=== PATIENT | female | born 1980 | race Caucasian/White ===

== ENCOUNTER → 2016-05-28 | Outpatient (CLI) | payer BC ==
--- NOTE | 2016-05-28 14:40 | US ---
EXAMINATION TYPE: US pelvic complete DATE OF EXAM: 05/28/2016 2:19 PM COMPARISON: CT on PACS CLINICAL HISTORY: Pelvic Pain R10.2. TECHNIQUE: Transvaginal (TV) and Transabdominal (TA) Date of LMP: 3 1/2 years ago post ablasion EXAM MEASUREMENTS: Uterus: 9.2 x 4.8x 4.7 cm cm Endometrial Stripe: 0.4 cm cm Right Ovary: 2.7 x 1.9 x 1.9 cm cm Left Ovary: 3.1 x 1.9 x 1.8 cm cm Findings: 1. Uterus: Retroverted. Heterogeneous texture overall. Hypoechoic nodule in the right side of the ut erine myometrium measures =2.0 x x 1.1 cm. Additional hypoechoic nodule with mass effect on endometr ium = 2.4 x 2.3 x 1.7 cm. Multiple cervical cysts noted. Largest = 0.7 cm 2. Endometrium: wnl 3. Right Ovary: wnl, with follicles. 4. Left Ovary: wnl, with follicles 5. Bilateral Adnexa: wnl 6. Posterior cul-de-sac: tiny amount of free fluid noted. IMPRESSION: 1. Multiple uterine masses with a diffusely heterogeneous echo pattern to the uterus. Most likely on the basis of fibroid uterus. Confirmation with MRI could be obtained on a short-term basis.
== END ==
LOC: RADUSWWP 13:52
PROVIDERS: ATTEND Family Medicine
DX: N85.8 Other specified noninflammatory disorders of uterus (principal)
CPT/HCPCS: 76830; 76856

== ENCOUNTER → 2016-08-28 | Outpatient (CLI) | payer BC ==
[2016-08-28 16:23] LABS: Basophils % (A) 0 %; CH 29.8; CHCM 32.1; Eosinophils # (A) 0.2 k/uL (0-0.7); Eosinophils % (A) 1 %; HCT 39.1 % (34.0-46.0); HDW 2.18; HGB 12.6 gm/dL (11.4-16.0); Luc # (Auto) 0.19; Luc % (Auto) 1; Lymphocytes # (A) 2.4 k/uL (1.0-4.8); Lymphocytes % (A) 13 %; MCHC 32.2 g/dL (31.0-37.0); MCV 93.2 fL (80.0-100.0); Mean Platelet Volume 6.4; Monocytes # (A) 0.6 k/uL (0-1.0); Monocytes % (A) 3 %; Neutrophils # (A) 15.8 k/uL (1.3-7.7); Neutrophils % (A) 82 %; RDW 12.9 % (11.5-15.5); WBC 19.2 k/uL (3.8-10.6); WBC (Perox) 19.61
[2016-08-28 16:31] LABS: Anion Gap 9 mmol/L; Blood Urea Nitrogen 9 mg/dL (7-17); Carbon Dioxide 27 mmol/L (22-30); Chloride 101 mmol/L (98-107); Glucose 101 mg/dL (74-99); Non-African American GFR(MDRD) >60 (>60 ml/min/1.73 sqM); Potassium 4.1 mmol/L (3.5-5.1); Sodium 137 mmol/L (137-145)
== END ==
LOC: LABPAT 15:56
PROVIDERS: ATTEND Obstetrics & Gynecology
DX: Z01.812 Encounter for preprocedural laboratory examination (principal); N94.6 Dysmenorrhea, unspecified; D25.9 Leiomyoma of uterus, unspecified
CPT/HCPCS: 80051; 82565; 82947; 84520; 85025; 86850; 86900; 86901; 87086

== ENCOUNTER → 2016-08-30 | Outpatient (CLI) | payer BC ==
[2016-08-30 15:34] LABS: Basophils # (A) 0.1 k/uL (0-0.2); Basophils % (A) 0 %; CH 29.9; CHCM 32.1; Eosinophils # (A) 0.2 k/uL (0-0.7); Eosinophils % (A) 2 %; HCT 39.3 % (34.0-46.0); HDW 2.18; HGB 12.3 gm/dL (11.4-16.0); Luc # (Auto) 0.17; Luc % (Auto) 2; Lymphocytes # (A) 2.3 k/uL (1.0-4.8); Lymphocytes % (A) 20 %; MCH 29.4 pg (25.0-35.0); MCHC 31.4 g/dL (31.0-37.0); MCV 93.5 fL (80.0-100.0); Mean Platelet Volume 6.5; Monocytes # (A) 0.4 k/uL (0-1.0); Monocytes % (A) 4 %; Neutrophils # (A) 8.5 k/uL (1.3-7.7); Neutrophils % (A) 73 %; RDW 12.8 % (11.5-15.5); WBC 11.7 k/uL (3.8-10.6); WBC (Perox) 12.35
[2016-08-30 16:22] LABS: Large Platelets Present; Manual Review Performed
== END | disposition home or self-care (01) ==
LOC: LABWHC1 14:56
PROVIDERS: ATTEND Family Medicine
DX: D70.9 Neutropenia, unspecified (principal)
CPT/HCPCS: 36415; 85025

== ENCOUNTER → 2016-10-09 | Outpatient (CLI) | payer BC ==
[2016-10-09 07:30] LABS: Basophils # (A) 0.1 k/uL (0-0.2); Basophils % (A) 1 %; CH 29.6; CHCM 33.5; Eosinophils # (A) 0.4 k/uL (0-0.7); Eosinophils % (A) 4 %; HCT 40.9 % (34.0-46.0); HDW 2.31; HGB 13.6 gm/dL (11.4-16.0); Luc # (Auto) 0.17; Luc % (Auto) 2; Lymphocytes # (A) 2.5 k/uL (1.0-4.8); Lymphocytes % (A) 26 %; MCH 29.5 pg (25.0-35.0); MCHC 33.2 g/dL (31.0-37.0); MCV 88.7 fL (80.0-100.0); Mean Platelet Volume 6.6; Monocytes # (A) 0.5 k/uL (0-1.0); Monocytes % (A) 5 %; Neutrophils # (A) 6.1 k/uL (1.3-7.7); Neutrophils % (A) 63 %; RBC 4.61 m/uL (3.80-5.40); RDW 13.1 % (11.5-15.5); WBC 9.7 k/uL (3.8-10.6); WBC (Perox) 9.05
[2016-10-09 07:47] LABS: Anion Gap 9 mmol/L; Blood Urea Nitrogen 11 mg/dL (7-17); Carbon Dioxide 26 mmol/L (22-30); Chloride 106 mmol/L (98-107); Glucose 101 mg/dL (74-99); Non-African American GFR(MDRD) >60 (>60 ml/min/1.73 sqM); Potassium 4.7 mmol/L (3.5-5.1); Sodium 141 mmol/L (137-145)
== END | disposition home or self-care (01) ==
LOC: LABPAT 06:36
PROVIDERS: ATTEND Obstetrics & Gynecology
DX: Z01.812 Encounter for preprocedural laboratory examination (principal); O90.81 Anemia of the puerperium; R53.83 Other fatigue; N94.6 Dysmenorrhea, unspecified; D21.9 Benign neoplasm of connective and other soft tissue, unspecified; R10.2 Pelvic and perineal pain
CPT/HCPCS: 80051; 82565; 82947; 84439; 84443; 84520; 85025; 86850; 86900; 86901; 87086

== ENCOUNTER 2016-10-16 08:35 | Observation (INO) | payer BC ==
[2016-10-12 18:06] VITALS: BMI 30.7
--- NOTE | 2016-10-15 20:54 | HP ---
HISTORY OF PRESENT ILLNESS: The patient is a 36 year old, 4, para 4, 0 , 0, 4 who was initially referred by Dr. Cullen for evaluation of pelvic pain. Her specific complaints four to six months of significant pelvic pain associated with cycles. She has undergone endometrial ablation approximately four years ago but the pain has become significant enough to prompt visits to the emergency room on at least one occasion. Ultrasound demonstrated possible thyroid as well as suggestion of ruptured ovarian cysts. She has a tubal ligation in place and is not interested in further child bearing. She would like to avoid hormonal interventions if possible and is opting to proceed with definitive therapy, specifically hysterectomy. PAST MEDICAL HISTORY: Significant for gestational diabetes as well as induced hypertension. SURGICAL HISTORY: She had her tonsils and adenoids out in 1994. She has had back injections for chronic back pain. She additionally had parotid gland surgery in early 1999 and tubes in her ears as a child. She denies anesthetic concerns. OBSTETRICAL HISTORY: 4, para 4, 0, 0, 4 with four term vaginal deliveries complicated by two episodes of preeclampsia, one vacuum delivery and her final with gestational diabetes. Method of contraception is tubal ligation. Gynecological history is unremarkable with a remote history of STDs but nothing recent. Family history is noncontributory. Social history: The patient is and is a nonsmoker. 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 She denies any other alcohol, drugs or any other social concerns. Current medications: 1. Lamictal 25 mg one in the a.m. and two in the p.m. 2. Seroquel 100 mg daily. 3. Venlafaxine 150 mg oral capsule daily. ALLERGIES: VICODIN CAUSED NAUSEA AND VOMITING WELL DISTURBED LEVEL OF CONSCIOUSNESS. PHYSICAL EXAMINATION: Vital signs are stable and the patient is afebrile. In general, this is a well developed white female in no acute distress. HEENT: demonstrates PERRLA, EOMI, her oropharynx is clear. Neck is supple without adenopathy. Thyroid is normal to palpation. Her heart has regular rhythm and rate without murmur. Her lungs are clear to auscultation bilaterally in all ricardo. Her abdomen is nondistended and has normal active bowel sounds, is soft , nontender, without any palpable masses. Hepatosplenomegaly without any hernias. Her extremities without cyanosis, clubbing or edema and are nontender to palpation bilaterally. Bimanual pelvic examination demonstrates normal external genitalia and BUF with normal vaginal mucosa and cervix. There is no cervical motion tenderness. Uterus was approximately five to six weeks in size, mobile, mobile, nontender, normal shaped uterus with ( ) to approximately +2 to +3 station. The adnexa are normal and nontender without mass bilaterally. ASSESSMENT AND PLAN: 1. Dysmenorrhea. 2. Fibroid uterus. 3. Chronic pelvic pain. We discussed multiple options for ongoing treatment including pain control. Hormonal manipulation in either a short or snf fashion as well as surgical approaches. The patient has requested definitive therapy with hysterectomy as she has her tubes tied and has undergone ablation. She is a candidate for a vaginal approach to the surgery. As a result, the risks and complications of the vaginal hysterectomy were discussed at length to include risks of bleeding, bleeding requiring transfusion, infection, and injury to local structures to specifically include the bowel, bladder and ureters. She has voice an understanding of all of these concerns and agrees to proceed. We went on to discuss the typical hospital and postoperative courses. We are scheduled for the above procedure on the morning of October 16, 2016. [facility] CENTERMallory
[~2016-10-16 08:35] MED LIST: DEXAMETHASONE SOD PHOSPHATE 10 MG/ML 1 ML VIAL IV ONE; LACTATED RINGERS 1,000 ML IV SCH; MIDAZOLAM 2 MG/2 ML VIAL IV PRN; ONDANSETRON 4 MG/2 ML VIAL IVP ONE; ceFAZolin 2 GM in SODIUM CHLORIDE 0.9% 100 ML IVPB ONE
[2016-10-16] MEDS ORDERED: LIDOCAINE 1% 20 ML VIAL (10MG/ML) FOR IV START INTRADERMA ONE (09:00)
[2016-10-16] MEDS ORDERED: SUCCINYLCHOLINE CHLORIDE 100 MG/5 ML SYR IV ONE (09:34)
[2016-10-16] MEDS ORDERED: fentaNYL (PF) 50 MCG/ML 2 ML AMP ONE (09:34)
[2016-10-16] MEDS ORDERED: KETOROLAC 30 MG/ML 1 ML VIAL ONE (09:34)
[2016-10-16] MEDS ORDERED: PROPOFOL 10 MG/ML 20 ML VIAL IV ONE (09:34)
[2016-10-16] MEDS ORDERED: LIDOCAINE 1% INJ 10MG/ML (20 ML MDV) ONE (09:34)
[2016-10-16] MEDS ORDERED: MIDAZOLAM 2 MG/2 ML VIAL ONE (09:34)
[2016-10-16] MEDS ORDERED: SIMETHICONE 80 MG CHEWABLE PO PRN (09:42)
[2016-10-16] MEDS ORDERED: METOCLOPRAMIDE 5 MG/ML 2 ML VIAL IVP PRN (09:42)
[2016-10-16] MEDS ORDERED: ONDANSETRON 4 MG/2 ML VIAL IVP PRN (09:42)
[2016-10-16] MEDS ORDERED: diphenhydrAMINE 50 MG/ML 1 ML VIAL IVP PRN (09:42)
[2016-10-16] MEDS ORDERED: Acetaminophen-Codeine 300-30mg TAB PO PRN (09:42)
[2016-10-16] MEDS ORDERED: VASOPRESSIN 20 UNIT/ML 1 ML VIAL SQ ONE (09:48)
[2016-10-16] MEDS ORDERED: LACTATED RINGERS 1,000 ML IV ONE (10:13)
[2016-10-16] MEDS ORDERED: BACITRACIN 500 UNIT/GM OINT 28.4 GM TUBE TOPICAL ONE (10:19)
--- NOTE | 2016-10-16 10:28 | P.OP ---
Date of Procedure: 10/16/16 Preoperative Diagnosis: #1. Dysmenorrhea #2. Fibroid uterus #3. Chronic pelvic pain Postoperative Diagnosis: Same Procedure(s) Performed: #1. Vaginal hysterectomy Implants: Anesthesia: LEMUEL Surgeon: Ebenezer Peña Retail Buyer #1: Rina Doyle Estimated Blood Loss (ml): 50 IV fluids (ml): 550 Urine output (ml): 150 Pathology: other (Uterus) Condition: stable Disposition: PACU Indications for Procedure: Operative Findings: Uterus was approximately 5 weeks in size with descensus 2+2 station. After removal, the uterus appeared essentially normal. The bilateral ovaries were normal as were the tubes. Description of Procedure: The patient was prepped and draped in usual fashion after general endotracheal anesthesia was administered by the anesthesiologist. A weighted speculum was placed and the cervix grasped with a double-tooth tenaculum. Cervicovaginal mucosa was infused with diluted vasopressin solution after draining the bladder approximate 150 mL of clear zo urine. The cervicovaginal mucosa was incised with a scalpel circumferentially and reflected distally in a blunt fashion. The posterior peritoneum was identified and incised sharply with the Curry scissors then tagged with a stitch of 2-0 Vicryl for later use. The short weighted speculum was replaced with the long weighted speculum and curved Ambrose -[place] clamps utilized to clamp the uterosacral ligament bilaterally. They were cut and suture-ligated with a transfixion stitch of 0 Vicryl. Serial bites were taken up the cardinal ligament on each side towards the utero- ovarian ligament. Each bite was made with a curved Ambrose-[place] clamp, then cut and suture-ligated with a transfixion stitch of 0 Vicryl. At the superior portion of the uterus, utero-ovarian ligaments were isolated bilaterally and clamped with curved Ambrose-[place] clamps, cut, and suture- ligated with a transfixion stitch of 0 Vicryl followed by a free tie of 0 Vicryl. Hemostasis along all of the pedicles appeared to be excellent. Once it was determined there was no pathology with the ovaries, they were released and the abdomen. The long weighted speculum was replaced the short weighted speculum and the previously placed stitch of 2-0 Vicryl was used in a running pursestring fashion to close the parietal peritoneum. The pedicles again appeared completely dry. The uterosacral ligaments were then passed through the contralateral uterosacral ligament and vaginal mucosa bilaterally in a modified Segura's culdoplasty. The intervening open vaginal cuff was closed with interrupted [id number]-mm-hwapm stitches of 0 Vicryl. Hemostasis appeared to be excellent. Estimated blood loss for the case was approximately 50 mL. There were no complications. A Aragon catheter was placed again demonstrating clear zo urine. The vagina was packed with one-inch iodophor gauze covered with bacitracin ointment. All sponge, instrument, and needle counts were correct. The patient tolerated the procedure well and proceeded to the recovery room in stable condition.
[2016-10-16] MEDS: HYDROmorphone 1 MG/ML 1 ML SYRINGE IVP PRN ×4 (10:51→11:09)
[2016-10-16] MEDS: Acetaminophen-Codeine 300-30mg TAB PO PRN ×2 (13:09→18:38)
[2016-10-16 15:28] VITALS: RESP 18
[2016-10-16] MEDS: KETOROLAC 30 MG/ML 1 ML VIAL IVP PRN ×2 (16:07→22:08)
[2016-10-16] MEDS: SENNOSIDES-DOCUSATE SODIUM 1 EACH TAB PO SCH (20:31)
[2016-10-16] MEDS: LACTATED RINGERS 1,000 ML IV SCH (20:33)
[2016-10-16] MEDS ORDERED: ZOLPIDEM 5 MG TAB PO PRN (21:00)
[2016-10-17] MEDS: LACTATED RINGERS 1,000 ML IV SCH (03:59)
[2016-10-17 06:22] LABS: Basophils % (A) 0 %; CH 29.7; CHCM 32.5; Eosinophils # (A) 0.1 k/uL (0-0.7); Eosinophils % (A) 1 %; HCT 36.9 % (34.0-46.0); HDW 2.21; HGB 11.8 gm/dL (11.4-16.0); Luc # (Auto) 0.15; Luc % (Auto) 1; Lymphocytes # (A) 2.4 k/uL (1.0-4.8); Lymphocytes % (A) 17 %; MCH 29.5 pg (25.0-35.0); MCHC 32.1 g/dL (31.0-37.0); MCV 91.9 fL (80.0-100.0); Mean Platelet Volume 6.6; Monocytes # (A) 0.6 k/uL (0-1.0); Monocytes % (A) 4 %; Neutrophils % (A) 77 %; RBC 4.01 m/uL (3.80-5.40); RDW 13.3 % (11.5-15.5); WBC 14.3 k/uL (3.8-10.6); WBC (Perox) 14.41
--- NOTE | 2016-10-17 08:53 | P.DS ---
Providers Date of admission: 10/16/16 23:33 Expected date of discharge: 10/17/16 Attending physician: Ebenezer Peña Primary care physician: Stated None - Discharge Diagnosis(es) (1) Dysmenorrhea Current Visit: Yes Status: Acute (2) Fibroid uterus Current Visit: Yes Status: Acute Hospital Course: The patient is a 36-year-old 4 para 4004 who was referred by Dr. Cullen for ongoing complaints of pelvic pain, specifically fairly significant dysmenorrhea having undergone an ablation approximate 4 years ago. Pelvic ultrasound demonstrated some fibroid changes and uterus as well. She has had a tubal ligation and is interested in definitive therapy. Examination before out that a vaginal approach was reasonable. She was taken the operating room where she underwent a vaginal hysterectomy in an uncomplicated fashion. Her postoperative course was unremarkable with vital signs remaining stable and her temperature was afebrile throughout. She was tolerating a regular diet by the evening of day of surgery and was deemed stable for discharge on postoperative day #1. She was discharged home to follow-up in the office in 2 weeks for a recheck and 6 weeks routinely. Discharge instructions included calling for any significantly increased vaginal bleeding, fever, pain, GI complaints, urinary complaints, or anything else that concerned her. She was additionally instructed to have nothing in the vagina for at least 6 weeks time to include intercourse. She understood her instructions and agrees to follow up as noted above. Discharge medications included any home medications that she might normally take as well as a prescription for Tylenol 3, 1-2 by mouth every 6 hours when necessary pain, #30 dispensed with no refills. Discharge hemoglobin and hematocrit were 11.8 and 36.9 respectively. Procedures: #1. Vaginal hysterectomy Patient Condition at Discharge: Stable Plan - Discharge Summary New Discharge Prescriptions: No Action Ferrous Sulfate [Iron] 325 mg PO DAILY Venlafaxine HCl ER [Effexor XR] 150 mg PO DAILY@1300 lamoTRIgine [LaMICtal] 50 mg PO DAILY@1300 Cyanocobalamin (Vitamin B-12) [Vitamin B-12] 1,000 mcg PO DAILY Discharge Medication List Ferrous Sulfate [Iron] 325 mg PO DAILY 10/12/16 [History] Venlafaxine HCl ER [Effexor XR] 150 mg PO DAILY@1300 10/12/16 [History] lamoTRIgine [LaMICtal] 50 mg PO DAILY@1300 10/12/16 [History] Cyanocobalamin (Vitamin B-12) [Vitamin B-12] 1,000 mcg PO DAILY 10/16/16 [ History] Follow up Appointment(s)/Referral(s): Ebenezer Peña MD [STAFF PHYSICIAN] - 6 Weeks Discharge Disposition: HOME SELF-CARE
[2016-10-17] MEDS: KETOROLAC 30 MG/ML 1 ML VIAL IVP PRN (08:58)
[2016-10-17] MEDS: SENNOSIDES-DOCUSATE SODIUM 1 EACH TAB PO SCH (08:58)
[2016-10-17 09:23] VITALS: BP 126/84; PULSE 71; TEMP 99.4
== END 2016-10-17 13:56 | disposition home or self-care (01) ==
LOC: OR 08:35 → 6PED 10:28 → OR 23:32 → 6PED 23:33
PROVIDERS: ADMIT Obstetrics & Gynecology; ATTEND Obstetrics & Gynecology
DX: D25.9 Leiomyoma of uterus, unspecified (principal); N80.0 Endometriosis of uterus; G89.29 Other chronic pain; R10.2 Pelvic and perineal pain; N94.6 Dysmenorrhea, unspecified; Z79.899 Other long term (current) drug therapy; Z86.32 Personal history of gestational diabetes; Z98.51 Tubal ligation status
CPT/HCPCS: 81025; 85025; 88307; 58260; G0378 ×2; J2250; J1100; J0690; J2405; J2001; J3010; J1885 ×2; J1170; J0330; J2704; 86850; 86900; 86901

== ENCOUNTER → 2016-11-14 | Outpatient (CLI) | payer BC ==
[2016-11-14 15:42] LABS: CH 29.2; CHCM 32.3; HCT 38.3 % (34.0-46.0); HDW 2.31; HGB 12.8 gm/dL (11.4-16.0); MCH 30.3 pg (25.0-35.0); MCHC 33.4 g/dL (31.0-37.0); MCV 90.8 fL (80.0-100.0); Mean Platelet Volume 6.5; RBC 4.22 m/uL (3.80-5.40); RDW 13.1 % (11.5-15.5); WBC 10.8 k/uL (3.8-10.6)
[2016-11-14 16:00] LABS: ALT 37 U/L (9-52); AST 23 U/L (14-36); Alkaline Phosphatase 84 U/L (38-126); Anion Gap 13 mmol/L; Blood Urea Nitrogen 9 mg/dL (7-17); Calcium 9.7 mg/dL (8.4-10.2); Carbon Dioxide 24 mmol/L (22-30); Chloride 105 mmol/L (98-107); Glucose 88 mg/dL (74-99); Non-African American GFR(MDRD) >60 (>60 ml/min/1.73 sqM); Potassium 4.8 mmol/L (3.5-5.1); Sodium 142 mmol/L (137-145); Total Bilirubin 0.5 mg/dL (0.2-1.3); Total Protein 7.3 g/dL (6.3-8.2)
[2016-11-14 16:44] LABS: Vitamin B12 763 pg/mL (239-931)
[2016-11-14 18:01] LABS: Hemoglobin A1C 5.4 % (4.2-6.1)
== END | disposition home or self-care (01) ==
LOC: LABWHC1 14:55
PROVIDERS: ATTEND Internal Medicine Endocrinology, Diabetes & Metabolism
DX: R53.83 Other fatigue (principal); Z86.32 Personal history of gestational diabetes
CPT/HCPCS: 36415; 80053; 82533; 82607; 83001; 83002; 83036; 84146; 84439; 84443; 84481; 85027

== ENCOUNTER → 2016-11-16 | Outpatient (CLI) | payer BC | END | disposition home or self-care (01) | LOC: LABWHC1 10:48 | PROVIDERS: ATTEND Internal Medicine Endocrinology, Diabetes & Metabolism | DX: E22.1 Hyperprolactinemia (principal); R53.83 Other fatigue; Z86.32 Personal history of gestational diabetes | CPT/HCPCS: 36415; 82024; 82533; 84146 ==

== ENCOUNTER 2018-01-29 16:23 | Emergency (ER) | payer BC ==
[2018-01-29 16:35] VITALS: TEMP 98
[2018-01-29] MEDS ORDERED: KETOROLAC 60 MG/2 ML VIAL IM STA (17:21)
[2018-01-29] MEDS ORDERED: ORPHENADRINE 30 MG/ML 2 ML VIAL IM STA (17:21)
[2018-01-29] MEDS ORDERED: MORPHINE SULFATE 4 MG/ML SYRINGE IM STA (17:21)
--- NOTE | 2018-01-29 17:39 | ED ---
General Adult HPI - General Chief complaint: Back Pain/Injury Stated complaint: back pain, spasms Time Seen by Provider: 01/29/18 17:09 Source: patient, RN notes reviewed Mode of arrival: wheelchair Limitations: no limitations - History of Present Illness Initial comments: Patient's a 37-year-old female presented to the emergency room today with a chief complaint of increased lower back pain. She was not to a history of chronic back pain. She states that pain it's increased over the last week. 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 She states she works in [employer] and this [facility] was across the street so she did go there. She states she was given Toradol and Norflex. She states that she did have some relief the symptoms. She feels some spasms in the lower back. She does admit that there is pain that radiates down the right leg. She states she's had this in the past as well. She states that it radiates down just below the right knee. Denies any bowel or bladder continence retention. Denies any saddle anesthesia. Patient states that pain is worse with certain movements. Denies any new injury or trauma. Does not that she has followed up with orthopedics in the past. She states that did have an MRI within the last year but nothing recently. Patient denies any other complaints or symptoms. Patient denies any recent fever, chills , shortness of breath, chest pain, back pain, abdominal pain, nausea or vomiting , numbness or tingling, headaches or visual changes, or any other complaints. - Related Data Home Medications Medication Instructions Recorded Confirmed Ferrous Sulfate [Iron] 325 mg PO DAILY 10/12/16 10/17/16 Venlafaxine HCl ER [Effexor XR] 150 mg PO DAILY@1300 10/12/16 10/17/16 lamoTRIgine [LaMICtal] 50 mg PO DAILY@1300 10/12/16 10/17/16 Cyanocobalamin (Vitamin B-12) 1,000 mcg PO DAILY 10/16/16 10/17/16 [Vitamin B-12] Previous Rx's Medication Instructions Recorded Acetaminophen-Codeine 300-30mg 1 each PO Q6H PRN #12 tablet 01/29/18 [Tylenol #3] Ibuprofen [Motrin] 600 mg PO Q6HR PRN #40 day 01/29/18 Orphenadrine [Norflex] 100 mg PO Q12H #20 tablet.er 01/29/18 Allergies Allergy/AdvReac Type Severity Reaction Status Date / Time No Known Allergies Allergy Verified 01/29/18 16:35 Review of Systems ROS Statement: Those systems with pertinent positive or pertinent negative responses have been documented in the HPI. ROS Other: All systems not noted in ROS Statement are negative. 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 Eye: There is normal conjunctiva bilaterally. No signs of icterus. Ears, nose, mouth and throat: There are moist mucous membranes and no oral lesions. Neck: The neck is supple, there is no tenderness or JVD. Cardiovascular: There is a regular rate and rhythm. No murmur, rub or gallop is appreciated. Respiratory: Lungs are clear to auscultation, respirations are non-labored, breath sounds are equal. Musculoskeletal: Normal ROM. Normal penis thoracic or lumbar spinal no step- off deformity. No tenderness midline over the spinous processes. Patient does have a fever times both the left and right side of the lower lumbar. Sensation intact. Strength 5/5. Pulses equal bilaterally 2+. Neurological: A&O x 3. CN II-XII intact, There are no obvious motor or sensory deficits. Coordination appears grossly intact. Speech is normal. Skin: Skin is warm and dry and no rashes or lesions are noted. Psychiatric: Cooperative, appropriate mood & affect, normal judgment. Limitations: no limitations Course Vital Signs 01/29/18 16:33 Temperature 98.0 F Pulse Rate 117 H Respiratory 20 Rate Blood Pressure 117/58 O2 Sat by Pulse 100 Oximetry Medical Decision Making - Medical Decision Making Patient was given shots of morphine, Toradol, Norflex here in emergency room. She does not that this is chronic back pain. She has had muscle spasms similar to this in the past. She does have radicular pain that goes down the right leg. Denies any bowel or bladder incontinence retention. Denies any saddle anesthesia. Patient has been following up with orthopedics for this back pain. Patient has been trying anti-inflammatories at home for relief. Patient denies any new injury or trauma. Patient will be given medications of Tylenol 3 , ibuprofen, Norflex to continue at home. She is advised follow-up with orthopedics over the next 2 days. A [employer] automated prescription system was checked showing no recent narcotics. Patient did have an opiate start talking form filled out. Patient is advised return if any symptoms increase worsen. States understanding and is in agreement. Disposition Clinical Impression: Acute exacerbation of chronic low back pain Disposition: HOME SELF-CARE Condition: Good Instructions: Acute Low Back Pain (ED) Additional Instructions: Please use medication as discussed. Please follow-up with family doctor in the next 2 days of symptoms have not improved. Please return to emergency room if the symptoms increase or worsen or for any other concerns. Prescriptions: Acetaminophen-Codeine 300-30mg [Tylenol #3] 1 each PO Q6H PRN #12 tablet PRN Reason: Pain Ibuprofen [Motrin] 600 mg PO Q6HR PRN #40 day PRN Reason: Pain Orphenadrine [Norflex] 100 mg PO Q12H #20 tablet.er Is patient prescribed a controlled substance at d/c from ED?: No Referrals: Judd Cullen MD [Primary Care Provider] - 1-2 days Time of Disposition: 17:37
[2018-01-29 17:42] VITALS: BP 113/59; PULSE 98; RESP 18
== END 2018-01-29 17:45 | disposition home or self-care (01) ==
LOC: EC 16:23
DX: G89.29 Other chronic pain (principal); M54.16 Radiculopathy, lumbar region; F41.9 Anxiety disorder, unspecified; F32.9 Major depressive disorder, single episode, unspecified; Z87.39 Personal history of other diseases of the musculoskeletal system and connective tissue; Z79.899 Other long term (current) drug therapy
CPT/HCPCS: 96372; 99283